=== PATIENT | female | born 1990 | race African-American/Black ===

== ENCOUNTER 2016-11-04 21:43 | Emergency (ER) | payer OTHER ==
[~2016-11-04 21:43] MED LIST: ALBUTEROL17 GM INH
== END 2016-11-04 23:12 | disposition home or self-care (01) ==
LOC: SED 21:43
DX: J45.901 Unspecified asthma with (acute) exacerbation (principal); Z91.14 Patient's other noncompliance with medication regimen; Z91.040 Latex allergy status
CPT/HCPCS: 94640; 99284